=== PATIENT | female | born 1960 | race American Indian/Alaskan Native ===

== ENCOUNTER 2020-03-05 13:42 | Emergency (ER) | payer MEDICARE ==
[2020-03-05] MEDS ORDERED: MORPHINE 4 MG/1 ML INJ IV ONE (14:19)
[2020-03-05] MEDS ORDERED: ONDANSETRON 4 MG/2 ML INJ IV ONE (14:19)
--- NOTE | 2020-03-05 14:22 | Emergency Department Report ---
ED General Adult HPI - General Chief complaint: Medical Clearance Stated complaint: CHEST PAIN PUI?: No Time Seen by Provider: 03/05/20 14:11 Source: patient, RN notes reviewed Mode of arrival: Wheelchair Limitations: Physical Limitation - History of Present Illness Initial comments: The patient was evaluated in the emergency department for symptoms described in the history of present illness. He/she was evaluated in the context of the global COVID-19 pandemic, which necessitated consideration that the patient might be at risk for infection with the virus that causes COVID-19. Institutional protocols and algorithms that pertain to the evaluation of patients at risk for COVID-19 are in a state of rapid change based on i nformation released by regulatory bodies including the CDC and federal and state organizations. These policies and algorithms were followed during the patient's care in the emergency department. Please note that these policies, procedures and recommendations changed on a rapid basis. Vascular surgeon: Ken Moeller MD Nephrology: Dr. Bah Patient is a 59-year-old female, who is right-hand dominant. Last week, at [facility], patient had elective vascular surgery performed on her right upper extremity. It appears that she had a right upper extremity fistula placed/surgery. Patient also reports having had a left thoracic Vas-Cath placed. Patient presents to the ER with multiple complaints. Her first complaint is right upper extremity pain and swelling. She has been having this since her surgery. Her second complaint is left neck, left chest wall, left trapezius harshal n. Pain is throbbing. Increases with palpation and decreases with rest. Patient not able to get Percocet prescription filled secondary to it being on backorder. Patient reports left-sided thoracic Vas-Cath has been used for hemodialysis without incident. Denies fever, loss of taste and smell. No dysuria. Positive nausea, no vomiting. No diarrhea. -: Gradual, days(s) Location: neck, left, right, upper extremity Radiation: other (Right upper extremity pain radiates proximally and distally. Left neck pain radiates to the left chest wall, and left trapezius) Severity scale (0 -10): 10 Quality: aching Consistency: constant Improves with: rest Worsens with: movement - Related Data Allergies Allergy/AdvReac Type Severity Reaction Status Date / Time No Known Allergies Allergy Unverified 03/05/20 13:45 ED Review of Systems ROS: Stated complaint: CHEST PAIN Other details as noted in HPI Constitutional: malaise. denies: fever Eyes: denies: eye discharge ENT: denies: congestion Respiratory: denies: cough Cardiovascular: as per HPI Gastrointestinal: as per HPI Genitourinary: as per HPI. denies: dysuria Musculoskeletal: arthralgia, myalgia Neurological: weakness (Global weakness) ED Past Medical Hx - Past Medical History Hx Hypertension: Yes Hx Psychiatric Treatment: Yes - Social History Smoking Status: Never Smoker Substance Use Type: None ED Physical Exam - General Limitations: Physical Limitation General appearance: alert, anxious, obese - Head Head exam: Present: atraumatic, normocephalic - Eye Eye exam: Present: normal appearance, EOMI. Absent: nystagmus - ENT ENT exam: Present: normal exam, normal orophraynx, mucous membranes moist, normal external ear exam - Neck Neck exam: Present: normal inspection, full ROM, other (There is reproducible left trapezius tenderness.). Absent: meningismus - Respiratory Respiratory exam: Present: normal lung sounds bilaterally, chest wall tenderness, other (There is a left-sided thoracic Vas-Cath, without redness, pus or streaking.). Absent: respiratory distress, wheezes, rales, rhonchi, stridor - Cardiovascular Cardiovascular Exam: Present: regular rate, normal rhythm, normal heart sounds. Absent: bradycardia, tachycardia, irregular rhythm, systolic murmur, diastolic murmur, rubs, gallop - GI/Abdominal GI/Abdominal exam: Present: soft. Absent: distended, tenderness, guarding, rebound, rigid, pulsatile mass - Extremities Exam Extremities exam: Present: normal inspection, full ROM, pedal edema, other (2+ pulses noted in the bilateral upper extremities. The right upper extremity, surgical site appears to be clean, without redness, pus or streaking. The right upper extremity is diffusely tender with soft compartments, and there is a right medial bicep ecchymosis and hematoma). Absent: calf tenderness - Back Exam Back exam: Present: normal inspection, full ROM. Absent: tenderness, CVA tenderness (R), CVA tenderness (L), paraspinal tenderness, vertebral tenderness - Neurological Exam Neurological exam: Present: alert, other (No facial droop. Tongue midline. Extraocular movements intact bilaterally. Facial sensation intact to light touch in V1, V2, V3 distribution bilaterally. 5 and a 5 strength in 4 extremities. Sensation intact to light touch in 4 extremities.) - Psychiatric Psychiatric exam: Present: anxious - Skin Skin exam: Present: warm, ecchymosis (Right medial upper extremity ecchymosis), other (There is a distal right upper extremity surgical site, with harpreet in place, without redness, pus or streaking) ED Course Vital Signs 03/05/20 13:51 Temperature 98.5 F Pulse Rate 82 Respiratory 20 Rate Blood Pressure 169/76 [Left] O2 Sat by Pulse 100 Oximetry - Reevaluation(s) Reevaluation #1: 03/05/20 15:37 Differential diagnosis, included but not limited to: Postprocedural pain, neuropathic pain, pneumothorax, musculoskeletal trapezius pain, hematoma, stenosis, pseudoaneurysm Assessment and plan: 59-year-old female, with a history of end-stage renal disease on hemodialysis, presenting with a left-sided chest wall pain, neck and trapezius pain, and right upper extremity pain and swelling after recent vascular surgery intervention. She is neurovascularly intact at this time. Laboratory studies do not indicate need for emergent hemodialysis. Her examination and laboratory studies not consistent with compartment syndrome, or myositis. X-ray of the chest shows no acute findings that would require emergent intervention. Right upper extremity duplex ultrasound pending at this time. Reevaluation #2: 03/05/20 16:11 Patient continues to require escalating doses of pain medication. Right upper extremity ultrasound is pending. I contacted patient's vascular surgeon of record, Dr. Wilmer Moeller He advises that the patient is likely experiencing postoperative pain as expected. There may also be a component of venous hypertension. However, he has accepted the patient to his service at [facility] for continuity of care and pain control. Have discussed this plan of care with the patient, who verbalized understanding, and was agreeable to this plan of care. Medical decision makin-year-old female, status post vascular surgery intervention last week, with intractable pain, unable to obtain outpatient follow-up, to be transferred to her vascular surgeon of record for continuity of care and pain control. ED Medical Decision Making - Lab Data Result diagrams: 03/05/20 14:26 03/05/20 14:26 Vital Signs 03/05/20 13:51 Temperature 98.5 F Pulse Rate 82 Respiratory 20 Rate Blood Pressure 169/76 [Left] O2 Sat by Pulse 100 Oximetry Lab Results 03/05/20 03/05/20 03/05/20 Range/Units 14:26 14:26 14:26 WBC 7.4 (4.5-11.0) K/mm3 RBC 2.83 L (3.65-5.03) M/mm3 Hgb 8.8 L (10.1-14.3) gm/dl Hct 27.2 L (30.3-42.9) % MCV 96 (79-97) fl MCH 31 (28-32) pg MCHC 32 (30-34) % RDW 20.0 H (13.2-15.2) % Plt Count 257 (140-440) K/mm3 Lymph % (Auto) 13.3 L (13.4-35.0) % [place] % (Auto) 7.5 H (0.0-7.3) % Eos % (Auto) 1.8 (0.0-4.3) % Baso % (Auto) 1.0 (0.0-1.8) % Lymph # (Auto) 1.0 L (1.2-5.4) K/mm3 [place] # (Auto) 0.6 (0.0-0.8) K/mm3 Eos # (Auto) 0.1 (0.0-0.4) K/mm3 Baso # (Auto) 0.1 (0.0-0.1) K/mm3 Seg Neutrophils % 76.4 H (40.0-70.0) % Seg Neutrophils # 5.6 (1.8-7.7) K/mm3 PT 13.2 (12.2-14.9) Sec. INR 1.02 (0.87-1.13) APTT 31.3 (24.2-36.6) Sec. Sodium 137 (137-145) mmol/L Potassium 4.7 (3.6-5.0) mmol/L Chloride 99.5 (98-107) mmol/L Carbon Dioxide 26 (22-30) mmol/L Anion Gap 16 mmol/L BUN 43 H (7-17) mg/dL Creatinine 10.8 H (0.6-1.2) mg/dL Estimated GFR 4 ml/min BUN/Creatinine Ratio 4 % Glucose 101 H (65-100) mg/dL Calcium 8.1 L (8.4-10.2) mg/dL Magnesium 1.90 (1.7-2.3) mg/dL Total Creatine Kinase 64 (30-135) units/L - Radiology Data Radiology results: pending, report reviewed, image reviewed CHEST 1 VIEW 03/05/2020 3:08 PM INDICATION / CLINICAL INFORMATION: left chest wall pain, neck pain s/p hd catheter pl. COMPARISON: None available. FINDINGS: SUPPORT DEVICES: Left IJ central venous catheter tip projects over the mid SVC. HEART / MEDIASTINUM: No significant abnormality. LUNGS / PLEURA: No significant pulmonary or pleural abnormality. No pneumothorax. ADDITIONAL FINDINGS: No significant additional findings. IMPRESSION: 1. Left IJ central venous catheter appears appropriately positioned. No acute findings. Signer Name: Lorenzo Ramirez MD Signed: 03/05/2020 2:20 PM Workstation Name: [id number] RIGHT UPPER EXTREMITY HEMODIALYSIS ACCESS EVALUATION INDICATION: Right upper extremity pain and swelling. Status post AV fistula creation on 02/26/2020. History of ESRD. COMPARISON: None available. FINDINGS: Visualized arterial inflow and venous outflow of the recently created right upper extremity fistula are patent with a peak systolic velocity of 107 cm per sec and at the arterial inflow and peak systolic velocity of 453 cm per sec and along the venous outflow. The reported range of volume flow is 762-1356 mL/minute. IMPRESSION: Patent right upper extremity AV fistula as detailed above. Signer Name: Micheal Gil MD Signed: 03/05/2020 3:31 PM Workstation Name: [id number] Critical care attestation.: If time is entered above; I have spent that time in minutes in the direct care of this critically ill patient, excluding procedure time. ED Disposition Clinical Impression: End stage renal disease, Postoperative pain, Encounter for dialysis catheter care Disposition: [id number]/[id number] SHRT-TRM GEN HOSP IP Is pt being admited?: No Does the pt Need Aspirin: No Condition: Good Referrals: PRIMARY CARE, [Primary Care Provider] - 3-5 Days
[2020-03-05 14:58] LABS: Basophils # (Auto) 0.1 K/mm3 (0.0-0.1); Eosinophils # (Auto) 0.1 K/mm3 (0.0-0.4); Eosinophils % (Auto) 1.8 % (0.0-4.3); Hematocrit 27.2 % (30.3-42.9); Hemoglobin 8.8 gm/dl (10.1-14.3); Lymphocytes % (Auto) 13.3 % (13.4-35.0); Mean Corpuscular HGB Conc 32 % (30-34); Mean Corpuscular Volume 96 fl (79-97); Monocytes # (Auto) 0.6 K/mm3 (0.0-0.8); Monocytes % (Auto) 7.5 % (0.0-7.3); Platelet Count 257 K/mm3 (140-440); Red Blood Count 2.83 M/mm3 (3.65-5.03)
[2020-03-05 15:04] LABS: Calcium 8.1 mg/dL (8.4-10.2)
[2020-03-05 15:06] LABS: INR 1.02 (0.87-1.13)
[2020-03-05 15:07] LABS: Partial Thromboplastin Time 31.3 Sec. (24.2-36.6)
--- NOTE | 2020-03-05 15:24 | XRay Report ---
CHEST 1 VIEW 03/05/2020 3:08 PM INDICATION / CLINICAL INFORMATION: left chest wall pain, neck pain s/p hd catheter pl. COMPARISON: None available. FINDINGS: SUPPORT DEVICES: Left IJ central venous catheter tip projects over the mid SVC. HEART / MEDIASTINUM: No significant abnormality. LUNGS / PLEURA: No significant pulmonary or pleural abnormality. No pneumothorax. ADDITIONAL FINDINGS: No significant additional findings. IMPRESSION: 1. Left IJ central venous catheter appears appropriately positioned. No acute findings. Signer Name: Lorenzo Ramirez MD Signed: 03/05/2020 3:20 PM Workstation Name: [id number]
[2020-03-05] MEDS ORDERED: HYDROmorphone 1 MG/1 ML INJ IV ONE ×3 (15:30→21:10)
[2020-03-05] MEDS ORDERED: HYDROmorphone 2 MG/1 ML INJ IV ONE (15:31)
--- NOTE | 2020-03-05 16:35 | Vascular Lab Report ---
RIGHT UPPER EXTREMITY HEMODIALYSIS ACCESS EVALUATION INDICATION: Right upper extremity pain and swelling. Status post AV fistula creation on 02/26/2020. History of ESR D. COMPARISON: None available. FINDINGS: Visualized arterial inflow and venous outflow of the recently created right upper extremity fistula a re patent with a peak systolic velocity of 107 cm per sec and at the arterial inflow and peak systoli c velocity of 453 cm per sec and along the venous outflow. The reported range of volume flow is 762-1 356 mL/minute. IMPRESSION: Patent right upper extremity AV fistula as detailed above. Signer Name: Micheal Gil MD Signed: 03/05/2020 4:31 PM Workstation Name: [id number]
[2020-03-05] MEDS ORDERED: HYDROmorphone 1 MG/1 ML INJ IV PRN (18:48)
[2020-03-05] MEDS ORDERED: ONDANSETRON 4 MG/2 ML INJ IV PRN (18:48)
[2020-03-05 23:19] VITALS: BP 178/89
== END 2020-03-05 23:17 | disposition short-term general hospital (02) ==
LOC: ED 13:42
DX: I12.0 Hypertensive chronic kidney disease with stage 5 chronic kidney disease or end stage renal disease (principal); N18.6 End stage renal disease; G89.18 Other acute postprocedural pain; Z99.2 Dependence on renal dialysis
CPT/HCPCS: 36415; 71045; 80048; 82550; 83735; 85025; 85610; 85730; 93990; 96374; 96375; 96376; 99285; J1170; J2270; J2405